=== PATIENT | female | born 1990 | race Caucasian/White ===

== ENCOUNTER 2017-10-21 03:30 | Inpatient (IN) | payer OTHER ==
[~2017-10-21 03:30] MED LIST: Rho(D) IG (HUMAN) 300 MCG SYR IM ONE
[2017-10-21] MEDS ORDERED: MEPERIDINE HCL 25 MG/0.5 ML IV PRN (04:16)
[2017-10-21] MEDS ORDERED: Ringers Lactate 1,000 ML IV PRN (04:16)
[2017-10-21] MEDS ORDERED: MIDAZOLAM HCL 2 MG/2 ML INJ IV PRN (04:16)
[2017-10-21] MEDS ORDERED: PROMETHAZINE 25 MG/ML VIAL IM PRN (04:16)
[2017-10-21] MEDS ORDERED: METHYLERGONOVINE 0.2MG/ML AMP IM PRN (04:16)
[2017-10-21] MEDS ORDERED: CARBOPROST TROME 250 MCG/ML IM PRN (04:16)
[2017-10-21] MEDS ORDERED: OXYTOCIN/LR 20 UNIT/1,000 ML BAG IV SCH ×2 (05:00→12:00)
[2017-10-21] MEDS ORDERED: Ringers Lactate 1,000 ML IV SCH (05:00)
[2017-10-21 05:15] LABS: RPR Titer ND
[2017-10-21 05:18] LABS: Urine Appearance CLOUDY; Urine Bilirubin NEGATIVE (NEG); Urine Blood NEGATIVE (NEG); Urine Color YELLOW; Urine Glucose NEGATIVE (NEG); Urine Protein NEGATIVE (NEG); Urine pH 6.5 (5.0-7.0)
[2017-10-21 05:19] LABS: Absolute Lymphocytes (CBC) 2.4 K/uL (0.7-4.9); Absolute Monocytes 0.8 K/uL (0.1-1.3); Basophils % 0.3 % (0-1.3); Eosinophils % 0.6 % (0-4.4); Hematocrit 27.8 % (36.0-45.0); Lymphocytes % 28.8 % (15.3-44.8); MCH 26.6 pg (27.0-35.0); MCV 78.3 fL (80-100); MPV 8.5 fL (7.6-11.3); Monocytes % 9.6 % (3.3-12.3); RBC Red Blood Cell Count 3.55 M/uL (3.86-4.86)
[2017-10-21 05:30] VITALS: BMI 25.1
[2017-10-21 06:10] LABS: Calcium Oxalate Crystals- Ur FEW (NONE SEEN); Urine Bacteria >50 /HPF (<20); Urine Culture Reflex Order REFLEXED; Urine RBC <5 /HPF (NONE SEEN)
[2017-10-21] MEDS ORDERED: BUTORPHANOL 1 MG/ML INJ IV PRN (06:12)
[2017-10-21] MEDS ORDERED: BUTORPHANOL 1 MG/ML INJ ONE (06:20)
--- NOTE | 2017-10-21 06:33 | PREOPHP ---
Date of Admission: 10/21/2017 A 27-year-old, 3, para 2, 39 weeks. Previous history of delivery at 37 weeks and 38 weeks, n ow she is 39. The patient is Rh negative, has received RhoGAM during the . Immune to Rubel la. Negative beta strep screen. The patient is now 5 cm, 50% effaced, vertex well applied at -1, al most 0 station. Rupture of membranes, clear fluid. Anticipate relatively rapid labor. Full labor t alk given. The patient will probably be requesting epidural as soon as she starts getting uncomforta ble. We will probably call for the epidural at that point. STEPHENIE/TAMIR Voice ID: [id number]
[2017-10-21] MEDS ORDERED: ROPIVACAINE HCL 100 ML IV PRN (07:10)
[2017-10-21] MEDS ORDERED: FENTANYL CITR 100 MCG/2 ML IV ONE (07:10)
[2017-10-21] MEDS ORDERED: ROPIVACAINE HCL 2 MG/ML 100ML IV ONE (07:12)
[2017-10-21] MEDS ORDERED: ROPIVACAINE HCL 20 ML ONE (07:34)
[2017-10-21] MEDS ORDERED: DIPHENHYDRAMINE 50 MG/ML VIAL ONE (09:18)
[2017-10-21] MEDS ORDERED: DIPHENHYDRAMINE 50 MG/ML VIAL IV ONE (09:18)
[2017-10-21] MEDS ORDERED: LIDOCAINE 2% INJ, 20 mL 0 ML ONE (10:23)
[2017-10-21] MEDS ORDERED: METHYLERGONOVINE 0.2MG/ML AMP IM ONE (10:23)
[2017-10-21] MEDS ORDERED: CARBOPROST TROME 250 MCG/ML IM ONE (10:23)
[2017-10-21] MEDS ORDERED: DIPHENHYDRAMINE 25 MG TAB/CAP PO PRN ×2 (11:30→11:31)
[2017-10-21] MEDS ORDERED: BISACODYL 10 MG RECTAL SUPP RECT PRN ×2 (11:30→11:31)
[2017-10-21] MEDS ORDERED: ACETAMINOPHEN 500 MG TAB PO PRN (11:30)
[2017-10-21] MEDS ORDERED: DOCUSATE NA/SENNA CONC 1 TAB PO PRN ×2 (11:30→11:31)
[2017-10-21] MEDS ORDERED: IBUPROFEN 200 MG TAB PO PRN ×2 (11:30→11:31)
[2017-10-21] MEDS ORDERED: Oxycodone HCl/Acetaminophen 1 TAB TAB PO PRN ×3 (11:30→11:31)
[2017-10-21] MEDS ORDERED: OXYTOCIN/LR 1,000 ML IV SCH (12:00)
[2017-10-21 21:47] LABS: RPR (Rapid Plasma Reagin) NON-REACT (NON-REACT)
--- NOTE | 2017-10-21 23:15 | OP ---
Surgeon: David Ford MD A 27-year-old, 3, para 1, 39 weeks' gestation, Rh negative, received RhoGAM during the pregna ncy, immune to rubella and beta strep negative. Admitted for labor induction, 4 cm at least on admis nichole. Rupture of membranes at approximately 4-5 cm, clear fluid. Epidural anesthesia established sh ortly thereafter. Second stage consisted of 1 push. Spontaneous vaginal delivery of a 7-pound and 1 1-ounce female, Apgars 9 and 9. No episiotomy. No laceration. Schultze delivery of the placenta, w hich was inspected and noted to be intact and normal. Less than 250 cc blood loss. Tolerated all pr ocedures well. Final Diagnoses: Term intrauterine , 39 weeks, vaginal delivery, epidural anesthesia, Rh ne gative, RhoGAM pending. STEPHENIE/TAMIR Voice ID: [id number] Report ID: [id number]
[2017-10-22] MEDS: Oxycodone HCl/Acetaminophen 1 TAB TAB PO PRN ×2 (00:45→09:47)
[2017-10-22 16:23] VITALS: BP 105/59; TEMP 97.4
[2017-10-23 19:12] LABS: HBsAG Nonreactive (Nonreactive)
== END 2017-10-22 14:00 | disposition home or self-care (01) | DRG 775 ==
LOC: 2ND-WC 03:30
PROVIDERS: ADMIT Specialist; ATTEND Specialist
PROC: 10E0XZZ Delivery of Products of Conception, External Approach (ICD-10-PCS; principal; 2017-10-21)
PROC: 3E033VJ Introduction of Other Hormone into Peripheral Vein, Percutaneous Approach (ICD-10-PCS; 2017-10-21)
PROC: 10907ZC Drainage of Amniotic Fluid, Therapeutic from Products of Conception, Via Natural or Artificial Opening (ICD-10-PCS; 2017-10-21)
PROC: 3E0234Z Introduction of Serum, Toxoid and Vaccine into Muscle, Percutaneous Approach (ICD-10-PCS; 2017-10-21)
DX: O26.893 Other specified pregnancy related conditions, third trimester (principal); Z3A.39 39 weeks gestation of pregnancy; Z37.0 Single live birth; Z67.91 Unspecified blood type, Rh negative
CPT/HCPCS: 36415; 81001; 85025; 85461; 86592; 86850; 86870; 86901; 87086; 87088; 87340; 99218; J0595; J2210; J2550; J2590; J2790; J2795; J3010